=== PATIENT | female | born 1970 | race American Indian/Alaskan Native ===

== ENCOUNTER 2022-08-22 06:54 | Emergency (ER) | payer MEDICAID, OTHER, SELFPAY ==
[2022-08-22] VITALS (8 sets, daily range): BP systolic 100–109; BP diastolic 56–64; PULSE 77–88; RESP 18; TEMP 36.1; O2SAT 90–97
--- NOTE | 2022-08-22 07:02 | DI.RAD.S_ITS ---
PROCEDURE: XR CHEST 2V INDICATIONS: SOB TECHNIQUE: 2 views of the chest were acquired. COMPARISON: None. FINDINGS: Surgical changes and devices: Surgical clips are seen in the upper abdomen. Lungs and pleura: There is elevation of the right hemidiaphragm with atelectasis of the right lung base. Patchy opacities are seen in the left upper lung zone. No pleural effusion or pneumothorax is seen. Mediastinum: Mediastinal contours are normal. Heart size is normal. Bones and chest wall: Chronic fracture deformity is seen in the posterolateral left 5th rib. Suspected osteochondroma at the right humeral shaft is only partially imaged. Soft tissues appear unremarkable. IMPRESSION: 1. Patchy left upper lobe opacities are suspicious for pneumonia. 2. Elevation of the right hemidiaphragm with atelectasis of the right lung base. 3. Suspected osteochondroma of the proximal right humeral shaft. Humeral radiographs could be performed for further evaluation if indicated clinically. Dictated by: Tim Dyson M.D. on 08/22/2022 at 7:57 Approved by: Tim Dyson M.D. on 08/22/2022 at 8:01
--- NOTE | 2022-08-22 07:12 | ED.SOB ---
HPI - SOB/Dyspnea General Chief Complaint: Upper Respiratory Symptoms Stated Complaint: SOB x 2 weeks Time Seen by Provider: 08/22/22 07:01 Source: patient and other Mode of arrival: Ambulatory Limitations: no limitations History of Present Illness HPI Narrative: 52-year-old female daily smoker with history of chronic opioid abuse on methadone presents this morning with a chief complaint of slowly worsening shortness of breath over the past 2 weeks. She states that she is had some dry cough but denies any fever chills. She denies any chest pain, nausea, vomiting or diaphoresis. She states she is had some increased shortness of breath with exertion. She denies any increased shortness of breath when lying flat or swelling of her lower extremities. She is never had a blood clot denies recent travel. She denies any urinary complaints or exposure to other known ill persons Related Data Previous Rx's Medication Instructions Recorded doxycycline hyclate 100 mg tablet 100 mg PO BID #20 tabs 08/22/22 prednisone 10 mg tablet See Rx Instructions .Route 08/22/22 .COMPLEX #30 tabs Review of Systems Review of Systems Narrative: GENERAL: See HPI HEENT: Denies sinus pain, ear pain, sore throat, difficulty swallowing, dizziness. RESPIRATORY: See HPI CARDIOVASCULAR: Denies chest pain, palpitations, orthopnea, edema, GASTROINTESTINAL: Denies nausea, vomiting, abdominal pain, diarrhea, constipation, melena. : Denies dysuria, frequency, incontinence, hematuria, urinary retention. MUSCULOSKELETAL: denies weakness, joint pain, or bony pain SKIN: Denies rash, skin lesions, or other NEUROLOGIC: Denies weakness, headache, numbness, change in speech, confusion, seizures, incoordination. PSYCHIATRIC: No concerning psychosocial issues. 12 point review of systems is negative except for those stated above Patient History Social History Smoking Status: Current every day smoker Smoking Status: Current every day smoker Substance Use Type: opiates and methamphetamine Exam Narrative Exam Narrative: GENERAL: [52] year old patient appears stated age. Well-developed patient, in mild distress. HEAD: Atraumatic. Normocephalic. EYES: Pupils equal round and reactive. Extraocular motions intact. No scleral icterus. No injection or drainage. ENT: Nose without bleeding, purulent drainage. Throat without erythema, tonsillar hypertrophy or exudate. Airway patent. NECK: Trachea midline. Non tender CARDIOVASCULAR: Regular rate and rhythm without murmurs, gallops, or rubs. RESPIRATORY: Decreased breath sounds bilaterally with faint and expiratory wheeze GASTROINTESTINAL: Abdomen soft, non-tender, nondistended. EXTREMITIES: No edema or joint tenderness. BACK: Nontender without deformity or crepitance. No flank tenderness. NEURO: AOx3. SKIN: No rash or erythema of visible areas Initial Vital Signs Initial Vital Signs: Vital Signs Temperature 97 F L 08/22/22 07:00 Pulse Rate 88 08/22/22 07:00 Respiratory Rate 18 08/22/22 07:00 Blood Pressure 103/58 L 08/22/22 07:00 Pulse Oximetry 90 L 08/22/22 07:00 Oxygen Delivery Method 08/22/22 07:00 Course Orders Ordered: ED Orders 08/22/22 07:02 XR chest 2V Stat EKG-12 Lead Stat 08/22/22 07:06 Consult to Respiratory Therapy Evaluate & Treat 08/22/22 07:39 Complete Blood Count AUTO DIFF Stat Comprehensive Metabolic Panel Stat D Dimer Stat Lactate (Lactic Acid) Stat Magnesium Stat NT-proBNP (BNP-Adult 18+) Stat Procalcitonin Stat Troponin & CK Cardiac Panel Stat 08/22/22 07:56 COVID19 -Nasal RAPID/Pre-Proc Stat 08/22/22 08:32 Blood Culture Stat Respiratory Panel (Film Array) Stat Discontinued Medications Albuterol/Ipratropium (Albuterol/Ipratropium 3 Ml Ampul) 3 ml INH NOW ONE Stop: 08/22/22 07:07 Last Admin: 08/22/22 07:30 Dose: 3 ml Documented By: SIRENA Albuterol/Ipratropium (Albuterol/Ipratropium 3 Ml Ampul) 3 ml INH Q20M [facility] Stop: 08/22/22 08:56 Last Admin: 08/22/22 08:58 Dose: 3 ml Documented By: Admin: 08/22/22 08:27 Dose: 3 ml Documented By: Admin: 08/22/22 08:07 Dose: 3 ml Documented By: SIRENA Methylprednisolone (Methylprednisolone 125 Mg/2 Ml Vial) 125 mg IV NOW ONE Stop: 08/22/22 07:07 Last Admin: 08/22/22 08:05 Dose: 125 mg Documented By: FRANKO Reevaluation(s) Reevaluation #1: Slight improvement in symptoms after 1st round of bronchodilators, still requiring 2 L of oxygen on nasal cannula Vital Signs Vital signs: Vital Signs - 8 hr 08/22/22 07:00 08/22/22 08:34 08/22/22 08:33 Temperature 97 F L Pulse Rate 88 77 78 Respiratory Rate 18 18 Blood Pressure 103/58 L 100/56 L Pulse Oximetry 90 L 97 96 Oxygen Delivery Method Room Air Nasal Cannula Nasal Cannula Oxygen Flow Rate 4 2 08/22/22 08:34 08/22/22 08:34 08/22/22 08:45 Temperature Pulse Rate 77 Respiratory Rate Blood Pressure 100/56 L 102/64 Pulse Oximetry 96 Oxygen Delivery Method Nasal Cannula Oxygen Flow Rate 2 08/22/22 08:45 08/22/22 09:00 08/22/22 09:00 Temperature Pulse Rate 85 85 Respiratory Rate Blood Pressure 100/57 L Pulse Oximetry 94 93 Oxygen Delivery Method Nasal Cannula Oxygen Flow Rate 2 08/22/22 09:15 08/22/22 09:15 08/22/22 09:30 Temperature Pulse Rate 87 Respiratory Rate Blood Pressure 104/64 106/57 L Pulse Oximetry 93 Oxygen Delivery Method Nasal Cannula Oxygen Flow Rate 2 08/22/22 09:30 Temperature Pulse Rate 84 Respiratory Rate Blood Pressure Pulse Oximetry 92 Oxygen Delivery Method Nasal Cannula Oxygen Flow Rate 2 MDM - SOB/Dyspnea Lab Data Result diagrams: 08/22/22 07:39 08/22/22 07:39 Labs: Lab Results 08/22/22 08/22/22 08/22/22 Range/Units 07:39 07:39 07:39 WBC 11.4 H (4.5-11.0) X10^3/uL RBC 4.36 (4.0-5.2) X10^6/uL Hgb 12.5 (12.0-16.0) g/dL Hct 37.8 (36-46) % MCV 86.7 (80-100) fL MCH 28.7 (26-34) PG MCHC 33.0 (30-36) % RDW 14.1 (11.6-14.8) % Plt Count 555 H (150-400) X10^3/uL Neut % (Auto) 70.0 (50-75) % Lymph % (Auto) 10.3 L (25-40) % [place] % (Auto) 7.3 (3-14) % Eos % (Auto) 11.3 H (2-4) % Baso % (Auto) 1.1 (0-2) % Neut # (Auto) 8000 H (3605-5397) /uL Lymph # (Auto) 1200 (3320-3475) /uL [place] # (Auto) 800 (0-900) /uL Eos # (Auto) 1300 H (0-450) /uL Baso # (Auto) 100 (0-100) /uL D-Dimer (<500) ng/ml Sodium 138 (137-145) mmol/L Potassium 4.4 (3.4-5.1) mmol/L Chloride 100 (98-107) mmol/L Carbon Dioxide 30 (22-32) mmol/L BUN 11 (7-17) mg/dL Creatinine 0.72 (0.52-1.04) mg/dL Estimated GFR > 60 (>60) mL/min BUN/Creatinine Ratio 15.3 (6-22) Glucose 79 (70-100) mg/dL Lactate 1.1 (0.7-2.1) mmol/L Calcium 8.8 (8.4-10.2) mg/dL Magnesium 2.2 (1.6-2.3) mg/dL Total Bilirubin 0.4 (0.2-1.3) mg/dL AST 23 (14-36) IU/L ALT 14 (<35) IU/L Alkaline Phosphatase 126 (38-126) U/L Total Creatine Kinase 45 (30-135) U/L CK-MB (CK-2) TNP CK-MB (CK-2) Rel Index TNP Troponin I < 0.012 (0.01-0.034) ng/mL NT-Pro-B Natriuret Pep 79 (<125) pg/mL Total Protein 8.0 (6.3-8.2) g/dL Albumin 3.9 (3.5-5.0) g/dL Globulin 4.1 (1.7-4.1) g/dL Albumin/Globulin Ratio 1.0 (1.0-2.8) Procalcitonin (<0.5) ng/mL Chlamy pneumoniae PCR (Not Detect) Adenovirus (PCR) (Not Detect) B. pertussis DNA (PCR) (Not Detecte) B.parapertussis DNA PCR (Not Detecte) Coronavirus OC43 (PCR) (Not Detect) Coronavirus HKU1 (PCR) (Not Detect) Coronavirus 229E (PCR) (Not Detect) SARS-CoV-2 (PCR) (Negative) Coronavirus NL63 (PCR) (Not Detect) Human Metapneumovir PCR (Not Detect) Influenza Type A (PCR) (Not Detect) Influenza Type B (PCR) (Not Detect) M. pneumoniae (PCR) (Not Detect) Parainfluenza 1 (PCR) (Not Detect) Parainfluenza 2 (PCR) (Not Detect) Parainfluenza 3 (PCR) (Not Detect) Parainfluenza 4 (PCR) (Not Detect) RSV (PCR) (Not Detect) Entero/Rhino (PCR) (Not Detect) 08/22/22 08/22/22 08/22/22 Range/Units 07:39 07:39 07:56 WBC (4.5-11.0) X10^3/uL RBC (4.0-5.2) X10^6/uL Hgb (12.0-16.0) g/dL Hct (36-46) % MCV (80-100) fL MCH (26-34) PG MCHC (30-36) % RDW (11.6-14.8) % Plt Count (150-400) X10^3/uL Neut % (Auto) (50-75) % Lymph % (Auto) (25-40) % [place] % (Auto) (3-14) % Eos % (Auto) (2-4) % Baso % (Auto) (0-2) % Neut # (Auto) (1665-9117) /uL Lymph # (Auto) (9453-5068) /uL [place] # (Auto) (0-900) /uL Eos # (Auto) (0-450) /uL Baso # (Auto) (0-100) /uL D-Dimer 479 (<500) ng/ml Sodium (137-145) mmol/L Potassium (3.4-5.1) mmol/L Chloride (98-107) mmol/L Carbon Dioxide (22-32) mmol/L BUN (7-17) mg/dL Creatinine (0.52-1.04) mg/dL Estimated GFR (>60) mL/min BUN/Creatinine Ratio (6-22) Glucose (70-100) mg/dL Lactate (0.7-2.1) mmol/L Calcium (8.4-10.2) mg/dL Magnesium (1.6-2.3) mg/dL Total Bilirubin (0.2-1.3) mg/dL AST (14-36) IU/L ALT (<35) IU/L Alkaline Phosphatase (38-126) U/L Total Creatine Kinase (30-135) U/L CK-MB (CK-2) CK-MB (CK-2) Rel Index Troponin I (0.01-0.034) ng/mL NT-Pro-B Natriuret Pep (<125) pg/mL Total Protein (6.3-8.2) g/dL Albumin (3.5-5.0) g/dL Globulin (1.7-4.1) g/dL Albumin/Globulin Ratio (1.0-2.8) Procalcitonin 0.05 (<0.5) ng/mL Chlamy pneumoniae PCR (Not Detect) Adenovirus (PCR) (Not Detect) B. pertussis DNA (PCR) (Not Detecte) B.parapertussis DNA PCR (Not Detecte) Coronavirus OC43 (PCR) (Not Detect) Coronavirus HKU1 (PCR) (Not Detect) Coronavirus 229E (PCR) (Not Detect) SARS-CoV-2 (PCR) Negative (Negative) Coronavirus NL63 (PCR) (Not Detect) Human Metapneumovir PCR (Not Detect) Influenza Type A (PCR) (Not Detect) Influenza Type B (PCR) (Not Detect) M. pneumoniae (PCR) (Not Detect) Parainfluenza 1 (PCR) (Not Detect) Parainfluenza 2 (PCR) (Not Detect) Parainfluenza 3 (PCR) (Not Detect) Parainfluenza 4 (PCR) (Not Detect) RSV (PCR) (Not Detect) Entero/Rhino (PCR) (Not Detect) 08/22/22 Range/Units 08:32 WBC (4.5-11.0) X10^3/uL RBC (4.0-5.2) X10^6/uL Hgb (12.0-16.0) g/dL Hct (36-46) % MCV (80-100) fL MCH (26-34) PG MCHC (30-36) % RDW (11.6-14.8) % Plt Count (150-400) X10^3/uL Neut % (Auto) (50-75) % Lymph % (Auto) (25-40) % [place] % (Auto) (3-14) % Eos % (Auto) (2-4) % Baso % (Auto) (0-2) % Neut # (Auto) (0077-0364) /uL Lymph # (Auto) (5475-1803) /uL [place] # (Auto) (0-900) /uL Eos # (Auto) (0-450) /uL Baso # (Auto) (0-100) /uL D-Dimer (<500) ng/ml Sodium (137-145) mmol/L Potassium (3.4-5.1) mmol/L Chloride (98-107) mmol/L Carbon Dioxide (22-32) mmol/L BUN (7-17) mg/dL Creatinine (0.52-1.04) mg/dL Estimated GFR (>60) mL/min BUN/Creatinine Ratio (6-22) Glucose (70-100) mg/dL Lactate (0.7-2.1) mmol/L Calcium (8.4-10.2) mg/dL Magnesium (1.6-2.3) mg/dL Total Bilirubin (0.2-1.3) mg/dL AST (14-36) IU/L ALT (<35) IU/L Alkaline Phosphatase (38-126) U/L Total Creatine Kinase (30-135) U/L CK-MB (CK-2) CK-MB (CK-2) Rel Index Troponin I (0.01-0.034) ng/mL NT-Pro-B Natriuret Pep (<125) pg/mL Total Protein (6.3-8.2) g/dL Albumin (3.5-5.0) g/dL Globulin (1.7-4.1) g/dL Albumin/Globulin Ratio (1.0-2.8) Procalcitonin (<0.5) ng/mL Chlamy pneumoniae PCR Not detected (Not Detect) Adenovirus (PCR) Not detected (Not Detect) B. pertussis DNA (PCR) Not detected (Not Detecte) B.parapertussis DNA PCR Not detected (Not Detecte) Coronavirus OC43 (PCR) Not detected (Not Detect) Coronavirus HKU1 (PCR) Not detected (Not Detect) Coronavirus 229E (PCR) Not detected (Not Detect) SARS-CoV-2 (PCR) Not detected (Negative) Coronavirus NL63 (PCR) Not detected (Not Detect) Human Metapneumovir PCR Not detected (Not Detect) Influenza Type A (PCR) Not detected (Not Detect) Influenza Type B (PCR) Not detected (Not Detect) M. pneumoniae (PCR) Not detected (Not Detect) Parainfluenza 1 (PCR) Not detected (Not Detect) Parainfluenza 2 (PCR) Not detected (Not Detect) Parainfluenza 3 (PCR) Not detected (Not Detect) Parainfluenza 4 (PCR) Not detected (Not Detect) RSV (PCR) Not detected (Not Detect) Entero/Rhino (PCR) Not detected (Not Detect) Imaging Data Chest x-ray: Radiologist's Impression: Patchy left upper lobe opacity suspicious for pneumonia ECG Data Interpretation: [0821] EKG is normal sinus rhythm rate [92 ] and free of any signs of ischemia or ectopy. No ST segmental elevation or depression. No T wave inversions MDM Narrative Medical decision making narrative: Patient with significant improved symptoms after above-stated therapies. She is a smoker and has access to albuterol nebulizers and MDI, x-ray suggests likely pneumonia, patient without increased work of breathing after treatments, pulse ox remains in the mid to upper 90s without need for supplemental oxygen. Return precautions discussed and questions answered to her apparent satisfaction Discharge Plan Departure Patient Disposition: Home Clinical Impression: COPD with acute exacerbation, Pneumonia Instructions: Chronic Obstructive Pulmonary Disease, DI for Atypical Pneumonia Activity Restrictions/Additional Instructions: *You have been diagnosed with [Acute COPD exacerbation and atypical pneumonia ] *What to do: *Please continue to take your regular medications as directed. [ ] New medication prescriptions sent to your pharmacy: [ ] [ x] New medication written as a paper prescription [ ] No new medications given *Please follow up with your primary care provider in 2-3 days, call for an appointment. Let them know you were seen in the Emergency Department and that we ask that you be seen in follow up. We will electronically transmit a record of today's note if your PCP is in our system *If you do not have a primary care provider please contact the [facility] Resource line at [phone]. They will ask some questions about your medical history and help get you set up with a doctor in the community. *Return to Emergency Department if you should have any new, worsening or concerning symptoms, such as [fever greater than 101 F, shaking chills, worsening pain, persistent vomiting or other bothersome symptoms] Prescriptions: New prednisone 10 mg tablet See Rx Instructions .ROUTE .COMPLEX Qty: 30 0RF Rx Instructions: Day 1,2,3: 40mg PO Daily Day 4,5,6: 30mg PO Daily Day 7,8,9: 20mg PO Daily Day 10,11,12: 10mg PO Daily #30 doxycycline hyclate 100 mg tablet 100 mg PO BID Qty: 20 0RF
[2022-08-22] MEDS: ALBUTEROL/IPRATROPIUM 3 ML AMPUL INH ×4 (07:30→08:58)
[2022-08-22 07:49] LABS: Add Manual Diff / Slide Review NO; Basophils Absolute Auto 100 /uL (0-100); Basophils Percent Auto 1.1 % (0-2); Eosinophils Absolute Auto 1300 /uL (0-450); Eosinophils Percent Auto 11.3 % (2-4); Hematocrit 37.8 % (36-46); Hemoglobin 12.5 g/dL (12.0-16.0); Lymphocytes Absolute Auto 1200 /uL (1100-4500); Lymphocytes Percent Auto 10.3 % (25-40); Mean Corpuscular Hemoglobin 28.7 PG (26-34); Mean Corpuscular Volume 86.7 fL (80-100); Monocytes Absolute Auto 800 /uL (0-900); Monocytes Percent Auto 7.3 % (3-14); Neutrophils Absolute Auto 8000 /uL (1500-7000); Platelet Count 555 X10^3/uL (150-400); Red Blood Cell Count 4.36 X10^6/uL (4.0-5.2); Red Cell Distribution Width 14.1 % (11.6-14.8); White Blood Cell Count 11.4 X10^3/uL (4.5-11.0)
[2022-08-22 08:00] LABS: Alanine Aminotransferase 14 IU/L (<35); Albumin 3.9 g/dL (3.5-5.0); Alkaline Phosphatase 126 U/L (38-126); Aspartate Aminotransferase 23 IU/L (14-36); BUN Creatinine Ratio 15.3 (6-22); Bilirubin Total 0.4 mg/dL (0.2-1.3); Blood Urea Nitrogen 11 mg/dL (7-17); Calcium 8.8 mg/dL (8.4-10.2); Carbon Dioxide 30 mmol/L (22-32); Chloride 100 mmol/L (98-107); Creatine Kinase 45 U/L (30-135); Estimated Glomerular Filt Rate > 60 mL/min (>60); Globulin 4.1 g/dL (1.7-4.1); Glucose 79 mg/dL (70-100); HEMOLYSIS 29 (0-50); Magnesium 2.2 mg/dL (1.6-2.3); Potassium 4.4 mmol/L (3.4-5.1); Sodium 138 mmol/L (137-145)
[2022-08-22 08:01] LABS: Lactate (Lactic Acid) 1.1 mmol/L (0.7-2.1)
[2022-08-22] MEDS: methylPREDNISolone 125 MG/2 ML VIAL IV (08:05)
[2022-08-22 08:12] LABS: NT-proBNP (BNP-Adult 18+) 79 pg/mL (<125); Troponin I < 0.012 ng/mL (0.01-0.034)
[2022-08-22 08:17] LABS: Procalcitonin 0.05 ng/mL (<0.5)
[2022-08-22 08:40] LABS: D Dimer 479 ng/ml (<500)
[2022-08-22 08:54] LABS: COVID19 -Nasal RAPID Negative (Negative)
[2022-08-22 09:40] LABS: Adenovirus Not Detected (Not Detect); B. parapertussis Not Detected (Not Detecte); Bordetella pertussis Not Detected (Not Detecte); Chlamydophila pneumoniae Not Detected (Not Detect); Coronavirus 229E Not Detected (Not Detect); Coronavirus HKU1 Not Detected (Not Detect); Coronavirus NL 63 Not Detected (Not Detect); Coronavirus OC43 Not Detected (Not Detect); Human Metapneumovirus Not Detected (Not Detect); Human Rhinovirus/Enterovirus Not Detected (Not Detect); Influenza A Not Detected (Not Detect); Influenza B Not Detected (Not Detect); Mycoplasma pneumoniae Not Detected (Not Detect); Parainfluenza Virus 1 Not Detected (Not Detect); Parainfluenza Virus 2 Not Detected (Not Detect); Parainfluenza Virus 3 Not Detected (Not Detect); Parainfluenza Virus 4 Not Detected (Not Detect); Respiratory Syncytial Virus Not Detected (Not Detect); SARS- CoV-2 Not Detected (Not Detecte)
== END 2022-08-22 10:16 | disposition home or self-care (01) ==
PROVIDERS: Emergency Provider Emergency Medicine
DX: J44.1 Chronic obstructive pulmonary disease with (acute) exacerbation (principal); J18.9 Pneumonia, unspecified organism; Z20.822 Contact with and (suspected) exposure to COVID-19
CPT/HCPCS: 36415; 71046; 80053; 82550; 83605; 83735; 83880; 84145; 84484; 85025; 85379; 87040; 87633; 87635; 93005; 96374; 99284; 99285; C9803; J2930

== ENCOUNTER 2023-05-02 08:09 | Emergency (ER) | payer MEDICAID, OTHER, SELFPAY ==
[2023-05-02] VITALS (19 sets, daily range): BP systolic 93–136; BP diastolic 54–86; PULSE 72–87; RESP 14–16; TEMP 36.5–36.6; O2SAT 92–100; BMI 36.1
[2023-05-02] MEDS: PROPARACAINE 0.5% OPHTH SOL 1 DROPS EYE-LEFT (08:41)
[2023-05-02] MEDS: FLUORESCEIN 1 MG STRIP EYE-LEFT (08:41)
[2023-05-02 09:09] LABS: Add Manual Diff / Slide Review YES; Hematocrit 37.8 % (36-46); Hemoglobin 12.8 g/dL (12.0-16.0); Mean Corpuscular HGB Conc 33.7 % (30-36); Mean Corpuscular Hemoglobin 27.7 PG (26-34); Mean Corpuscular Volume 82.1 fL (80-100); Platelet Count 365 X10^3/uL (150-400); Red Blood Cell Count 4.61 X10^6/uL (4.0-5.2); Red Cell Distribution Width 14.5 % (11.6-14.8); White Blood Cell Count 7.4 X10^3/uL (4.5-11.0)
[2023-05-02 09:19] LABS: Alanine Aminotransferase 17 IU/L (<35); Albumin 3.8 g/dL (3.5-5.0); Albumin Globulin Ratio 1.1 (1.0-2.8); Alkaline Phosphatase 129 U/L (38-126); Aspartate Aminotransferase 25 IU/L (14-36); BUN Creatinine Ratio 12.9 (6-22); Bilirubin Total 0.4 mg/dL (0.2-1.3); Blood Urea Nitrogen 11 mg/dL (7-17); Calcium 8.4 mg/dL (8.4-10.2); Carbon Dioxide 33 mmol/L (22-32); Chloride 101 mmol/L (98-107); Estimated Glomerular Filt Rate > 60 mL/min (>60); Globulin 3.4 g/dL (1.7-4.1); Glucose 82 mg/dL (70-100); HEMOLYSIS < 15 (0-50); Sodium 138 mmol/L (137-145); Total Protein 7.2 g/dL (6.3-8.2)
[2023-05-02 09:26] LABS: Neutrophils Absolute Manual 3996 /uL (3000-5900); RBC Morphology Normal Morphology; Total Cells Counted 100
--- NOTE | 2023-05-02 09:38 | ED_ITS ---
HPI - Fall General Chief Complaint: Fall Stated Complaint: fell alsleep standing up hit head T-4 Time Seen by Provider: 05/02/23 08:33 History of Present Illness HPI Narrative: Patient brought here by nursing staff from methadone clinic for concerns fall/injury. Patient has bruising swelling to the left temporal area. Patient is awake alert oriented x4. She did take her methadone this morning and is tired. This is not uncommon she states, nursing staff knows her and this is not uncommon as well. Patient states 5 days ago she was in her bathroom in the middle of the night. She was very tired. She states she fell asleep standing up. She denies denies any prevent palpitations headache chest pain abdominal pain or dizziness that caused her to fall asleep. She hit the corner of the sink she states. No loss of consciousness. Denies any visual changes. She is supposed to wear contact lenses but she does not. She denies any visual changes. Visual acuity completed and she states this is her baseline with her left eye vision. However she states she feels a gritty sensation to her left eye. She is awake alert oriented x4 with clear speech. She is behaving baseline according to nursing staff from the methadone clinic. She denies any neck pain limb pain chest pain back pain pelvic pain from the fall. She states she is been very tired recently because she is been taking care of her mother. Denies any confusion nausea or headache Related Data Previous Rx's Medication Instructions Recorded doxycycline hyclate 100 mg tablet 100 mg PO BID #20 tabs 08/22/22 prednisone 10 mg tablet See Rx Instructions .Route 08/22/22 .COMPLEX #30 tabs Review of Systems Review of Systems Narrative: GENERAL: negative chills, fatigue, malaise, fever, sweats. HEENT: negative sinus pain, ear pain, sore throat RESPIRATORY: negative dyspnea, cough CARDIOVASCULAR: negative chest pain, palpitations GASTROINTESTINAL: negative nausea, vomiting, abdominal pain : negative dysuria, frequency, hematuria MUSCULOSKELETAL: negative muscle or bony pain SKIN: negative rash, skin lesions, positive skin injury NEUROLOGIC: negative weakness, numbness ROS Unobtainable: All systems reviewed & are unremarkable except as noted in HPI and below Patient History Social History Smoking Status: Current every day smoker Smoking Status: Current every day smoker Substance Use Type: opiates and methamphetamine Exam Narrative Exam Narrative: GENERAL: in no distress, not toxic not dyspneic HEAD: Normocephalic. There is edema healing bruise/ecchymosis to the left periorbital area laterally. Healing scab overlying this injury. No oozing. Nontender. EYES: Pupils equal round PERRLA, EOMI, patient denies any blurry vision or double vision. Proparacaine fluorescein strip Wood's lamp slit lamp used for exam. No foreign body no corneal abrasion, ENT: Mucous membranes moist. No nasal deformity no nasal tenderness NECK: Trachea midline. No midline tenderness or step-off CARDIOVASCULAR: Regular rate and rhythm without murmurs RESPIRATORY: Clear to auscultation. Breath sounds equal bilaterally. No wheezes, rales, or rhonchi. GASTROINTESTINAL: Abdomen soft, non-tender EXTREMITIES: No gross deformities. Moving all 4 extremities purposely without any pain. Nontender grossly bilateral shoulders elbows wrists pelvis hips knees and ankles BACK: No flank tenderness. NEURO: AOx4. Clear speech no facial droop light touch intact bilateral face and hands with strong equal supervisory lifeguard SKIN: Warm and dry PSYCH: Not anxious, is cooperative Initial Vital Signs Initial Vital Signs: Vital Signs Blood Pressure 111/74 05/02/23 08:12 Pulse Oximetry 93 05/02/23 08:12 Course Orders Ordered: Discontinued Medications Diphtheria/Tetanus/Acell Pertussis (Tet,Diph,Pertuss(Acell),Vac/Pf 0.5 Ml Syringe) 0.5 ml IM .ONCE ONE Stop: 05/02/23 10:09 Last Admin: 05/02/23 10:21 Dose: 0.5 ml Documented By: FRANKO Fluorescein Sodium (Fluorescein 1 Mg Strip) 1 mg EYE-LEFT NOW ONE Stop: 05/02/23 08:36 Last Admin: 05/02/23 08:41 Dose: 1 mg Documented By: FRANKO Proparacaine HCl (Proparacaine 0.5% Ophth Kelli) 1 drops EYE-LEFT NOW ONE Stop: 05/02/23 08:36 Last Admin: 05/02/23 08:41 Dose: 1 drop Documented By: FRANKO Vital Signs Vital signs: Vital Signs - 8 hr 05/02/23 09:30 05/02/23 09:30 05/02/23 10:00 Temperature Pulse Rate 81 Respiratory Rate Blood Pressure 107/62 100/59 L Pulse Oximetry 94 Oxygen Delivery Method 05/02/23 10:00 05/02/23 10:30 05/02/23 12:09 Temperature 97.7 F Pulse Rate 76 79 87 Respiratory Rate 14 Blood Pressure 136/86 Pulse Oximetry 99 92 97 Oxygen Delivery Method 05/02/23 12:09 05/02/23 13:55 05/02/23 13:56 Temperature Pulse Rate 85 79 80 Respiratory Rate 14 Blood Pressure Pulse Oximetry 96 97 97 Oxygen Delivery Method Room Air 05/02/23 13:56 05/02/23 14:00 05/02/23 14:00 Temperature Pulse Rate 76 Respiratory Rate Blood Pressure 113/68 113/55 L Pulse Oximetry 97 Oxygen Delivery Method 05/02/23 14:15 05/02/23 14:15 05/02/23 14:30 Temperature Pulse Rate 72 Respiratory Rate Blood Pressure 94/54 L 94/55 L Pulse Oximetry 97 Oxygen Delivery Method 05/02/23 14:30 05/02/23 14:45 05/02/23 14:45 Temperature Pulse Rate 75 81 Respiratory Rate Blood Pressure 93/56 L Pulse Oximetry 98 97 Oxygen Delivery Method 05/02/23 15:00 05/02/23 15:00 05/02/23 15:15 Temperature Pulse Rate 77 Respiratory Rate Blood Pressure 99/57 L 107/64 Pulse Oximetry 97 Oxygen Delivery Method 05/02/23 15:15 05/02/23 15:30 05/02/23 15:30 Temperature Pulse Rate 77 76 Respiratory Rate Blood Pressure 102/56 L Pulse Oximetry 97 97 Oxygen Delivery Method 05/02/23 15:45 05/02/23 15:45 05/02/23 16:00 Temperature Pulse Rate 77 Respiratory Rate Blood Pressure 99/60 103/64 Pulse Oximetry 95 Oxygen Delivery Method 05/02/23 16:00 Temperature Pulse Rate 72 Respiratory Rate Blood Pressure Pulse Oximetry 95 Oxygen Delivery Method MDM - Fall Lab Data 05/02/23 08:50 05/02/23 08:50 Labs: Lab Results 05/02/23 05/02/23 Range/Units 08:50 08:50 WBC 7.4 (4.5-11.0) X10^3/uL RBC 4.61 (4.0-5.2) X10^6/uL Hgb 12.8 (12.0-16.0) g/dL Hct 37.8 (36-46) % MCV 82.1 (80-100) fL MCH 27.7 (26-34) PG MCHC 33.7 (30-36) % RDW 14.5 (11.6-14.8) % Plt Count 365 (150-400) X10^3/uL Neut % (Auto) Not Reportable Lymph % (Auto) Not Reportable [place] % (Auto) Not Reportable Eos % (Auto) Not Reportable Baso % (Auto) Not Reportable Lymph # (Auto) Not Reportable [place] # (Auto) Not Reportable Baso # (Auto) Not Reportable Total Counted 100 Seg Neutrophils % 54.0 (38-70) % Lymphocytes % (Manual) 21.0 L (25-45) % Monocytes % (Manual) 5.0 (2-11) % Eosinophils % (Manual) 17.0 H (2-4) % Basophils % (Manual) 3.0 H (0-1) % Neutrophils # (Manual) 3996 (4131-0238) /uL RBC Morphology Normal morphology Sodium 138 (137-145) mmol/L Potassium 4.0 (3.4-5.1) mmol/L Chloride 101 (98-107) mmol/L Carbon Dioxide 33 H (22-32) mmol/L BUN 11 (7-17) mg/dL Creatinine 0.85 (0.52-1.04) mg/dL Estimated GFR > 60 (>60) mL/min BUN/Creatinine Ratio 12.9 (6-22) Glucose 82 (70-100) mg/dL Calcium 8.4 (8.4-10.2) mg/dL Total Bilirubin 0.4 (0.2-1.3) mg/dL AST 25 (14-36) IU/L ALT 17 (<35) IU/L Alkaline Phosphatase 129 H (38-126) U/L Total Protein 7.2 (6.3-8.2) g/dL Albumin 3.8 (3.5-5.0) g/dL Globulin 3.4 (1.7-4.1) g/dL Albumin/Globulin Ratio 1.1 (1.0-2.8) Imaging Data CT scan - head: Radiologist's Impression: No acute findings CT - cervical spine: Radiologist's Impression: No acute finding CT facial bone: Radiologist's Impression: Right nasal bone fracture of uncertain chronicity otherwise no acute finding MDM Narrative Medical decision making narrative: Patient brought here by nursing staff from methadone clinic for concerns fall/injury. Patient has bruising swelling to the left temporal area. Patient is awake alert oriented x4. She did take her methadone this morning and is tired. This is not uncommon she states, nursing staff knows her and this is not uncommon as well. Patient states 5 days ago she was in her bathroom in the middle of the night. She was very tired. She states she fell asleep standing up. She denies denies any prevent palpitations headache chest pain abdominal pain or dizziness that caused her to fall asleep. She hit the corner of the sink she states. No loss of consciousness. Denies any visual changes. She is supposed to wear contact lenses but she does not. She denies any visual changes. Visual acuity completed and she states this is her baseline with her left eye vision. However she states she feels a gritty sensation to her left eye. She is awake alert oriented x4 with clear speech. She is behaving baseline according to nursing staff from the methadone clinic. She denies any neck pain limb pain chest pain back pain pelvic pain from the fall. She states she is been very tired recently because she is been taking care of her mother. Denies any confusion nausea or headache After history and exam CBC CMP CT head cervical spine face Tdap MDM CC: Facial injury Complicating co-morbidities: History of methadone use Data collected from: Patient and methadone clinic nurse Medical records reviewed: No recent visit for this complaint Differential considered: Includes but not limited to orbital fracture contusion abrasion fatigue, dehydration Exam documented above, pertinent findings include: Contusion edema left lateral periorbital bone Lab Test results independently reviewed as above. Pertinent findings: WBC 7.4 hemoglobin 12.8 platelets 365 sodium 138 potassium 4.0 GFR greater than 60 BUN 11 creatinine 0.85 Independently reviewed EKG none indicated. No palpitations or chest pain or dyspnea Imaging studies independently reviewed: CT head CT cervical spine CT face no acute findings, nasal fracture of uncertain chronicity, I reviewed with patient and she denies any pain or injury to the nose. Consultations: None indicated Treatments: Tdap Re-evaluations: 10:00 a.m. informed patient we will need to transport [facility] for CT scan and she will be returning here because our CAT scan machine is broken 5:20 p.m.. Reviewed results with patient. She is been sleeping here very comfortably. After waking from this afternoon nap here she no longer has any eye discomfort. She thinks it may have been irritation from the mascara but she had irritation of the left eye before she put on her mascara. She has been under lot of stress and I informed her it may be dry eye. Encouraged her to have artificial tears [id number] to help. She states when she took Visine it made it worse. I informed her to just use saline drops. Return precautions reviewed with her. She desires discharge home. Discussion: Appropriate for discharge home. Exam and laboratory studies and imaging are reassuring. Left eye dryness likely dry eye. Diagnosis: Facial contusion Discharge Plan Departure Patient Disposition: Home Clinical Impression: Contusion of face Instructions: DI for Eye Contusion, DI for Contusion, DI for Closed Head Injury Activity Restrictions/Additional Instructions: Please be careful with taking your methadone as it does make you tired and sleepy. No driving operating machinery. Be careful when getting up in the middle of the night when your tired. It is easy to get dizzy or possibly fall asleep and fall. Return if worse if any questions or concerns. See family doctor in a week for re-evaluation Prescriptions: No Action prednisone 10 mg tablet See Rx Instructions .ROUTE .COMPLEX Qty: 30 0RF Rx Instructions: Day 1,2,3: 40mg PO Daily Day 4,5,6: 30mg PO Daily Day 7,8,9: 20mg PO Daily Day 10,11,12: 10mg PO Daily #30 doxycycline hyclate 100 mg tablet 100 mg PO BID Qty: 20 0RF Referrals: Miscellaneous,Doctor, [Non-Staff] - Stand Alone Forms: Patient Portal/API
[2023-05-02] MEDS: TET,DIPH,PERTUSS(ACELL),VAC/PF 0.5 ML SYRINGE IM (10:21)
--- NOTE | 2023-05-02 12:16 | PC.NURSE ---
Addendum entered by Molly Amaya R.N. 05/02/23 12:41: Pt transported to [facility] via [facility] at 12:16. Pt A&Ox4 on departure with no new concerning symptoms Original Note: Pt transported to [facility] via [place]
--- NOTE | 2023-05-02 13:59 | PC.NURSE ---
Pt returned to room following transport to [facility] for CT. Pt A&Ox4, denies pain or any concerns. Provided warm blanket and beverage.
--- NOTE | 2023-05-02 15:28 | PC.NURSE ---
Spoke with Kimmie RN re: transportation for pt. States he will be her ride home this afternoon. Will call 30 mins prior to discharge.
== END 2023-05-02 17:27 | disposition home or self-care (01) ==
PROVIDERS: Emergency Provider Emergency Medicine; PCP Nurse Practitioner Family
DX: S00.12XA Contusion of left eyelid and periocular area, initial encounter (principal); W18.30XA Fall on same level, unspecified, initial encounter; Z23 Encounter for immunization
CPT/HCPCS: 36415; 80053; 85007; 85025; 90471; 99284; 90715